=== PATIENT | female | born 1960 | race Caucasian/White ===

== ENCOUNTER 2024-12-26 05:59 | Observation (INO) | payer BC ==
[2024-12-24 14:09] LABS: BASOPHILS % 0.5 % (0.0-1.0); EOSINOPHILS % 3.0 % (0.0-6.0); LYMPHOCYTES % 24.6 % (18.0-39.1); MONOCYTES % 4.7 % (4.4-11.3); NEUTROPHILS % 66.9 % (38.7-80.0); RED CELL DISTRIBUTION WIDTH 12.2 % (11.7-14.4)
[2024-12-24 14:23] LABS: INR 0.93
[2024-12-24 14:28] LABS: EST GLOMERULAR FILTRATION RATE 86.0 ML/MIN (>=60)
[~2024-12-26] VITALS: Ht 157.5 cm; Wt 73.2 kg
[~2024-12-26 05:59] MED LIST: ALTOPREV40 MG PO; DIOVAN320 MG PO; DIOVAN80 MG PO; GLUCOPHAGE500 MG PO; MELOXICAM7.5 MG PO; METOPROLOL SUCC50 MG PO; TENORMIN100 MG PO; TIMOPTIC 0.5%1 EACH OU; TRESIBA FL100 UNIT/1 SQ; VITAMIN D3125 MCG PO
[2024-12-26] MEDS ORDERED: MIDAZOLAM HCL 2 MG/2 ML VIAL ONE (07:09)
[2024-12-26] MEDS ORDERED: PROPOFOL IV EMULSION 10 MG/ML 20 ML VIAL ONE (07:09)
[2024-12-26] MEDS ORDERED: FENTANYL CITRATE/PF 100MCG/2 ML INJ ONE (07:09)
[2024-12-26] MEDS ORDERED: ROCURONIUM BROMIDE 1 ML IV ONE (07:09)
[2024-12-26] MEDS ORDERED: SEVOFLURANE INHAL SOLN 250 ML PEN BTL ONE (07:09)
[2024-12-26] MEDS ORDERED: LIDOCAINE HCL 2% LOCAL INJ 5 ML SDV VIAL INJ ONE (07:09)
[2024-12-26] MEDS ORDERED: SODIUM CHLORIDE 0.9% 100 ML ONE (07:12)
[2024-12-26] MEDS ORDERED: DEXMEDETOMIDINE HCL 2 ML ONE (07:12)
[2024-12-26] MEDS: CEFAZOLIN SODIUM 2 GM ONE (07:40)
[2024-12-26] MEDS: LACTATED RINGER'S 1,000 ML ONE (07:40)
[2024-12-26] MEDS ORDERED: ACETAMINOPHEN 1000 MG/100 ML 100 ML IV ONE (07:47)
[2024-12-26] MEDS ORDERED: FAMOTIDINE 20 MG/2 ML VIAL IV ONE (07:47)
[2024-12-26] MEDS ORDERED: DEXAMETHASONE SOD PHOS INJ 4 MG/ML SDV ONE (08:20)
[2024-12-26] MEDS ORDERED: ONDANSETRON HCL INJ 2MG/ML 2ML 2 MG/ML VIAL ONE (08:20)
[2024-12-26] MEDS ORDERED: KETAMINE HCL INJ 50 MG/ML 10 ML VIAL ONE (08:24)
[2024-12-26] MEDS ORDERED: EPHEDRINE SULFATE INJ 50 MG/ML VIAL ONE (09:04)
[2024-12-26] MEDS ORDERED: SUGAMMADEX SODIUM 200 MG/2 ML VIAL IV ONE (09:05)
[2024-12-26] MEDS ORDERED: HYDROCODON-ACE1 EA12 PO (09:29)
[2024-12-26] MEDS ORDERED: ACETAMINOPHEN 325 MG TAB PO PRN (09:30)
[2024-12-26] MEDS ORDERED: CARISOPRODOL 350 MG TAB PO PRN (09:30)
[2024-12-26] MEDS ORDERED: Morphine 10mg syringe 10 MG/ML INJ IV PRN (09:30)
[2024-12-26] MEDS ORDERED: MELOXICAM 7.5 MG TAB PO PRN (09:30)
[2024-12-26] MEDS ORDERED: MAGNESIUM/ALUMINUM/SIMETHICONE 30 ML UDC PO PRN (09:30)
[2024-12-26] MEDS ORDERED: PROMETHAZINE HCL (IM) 25 MG/ML VIAL IM PRN (09:30)
[2024-12-26] MEDS ORDERED: HYDROMORPHONE 2MG/ML IV PRN (09:30)
[2024-12-26] MEDS ORDERED: DEXTROSE 50% SYRINGE 50 ML IV PRN (09:30)
[2024-12-26] MEDS: HYDRALAZINE HCL 20 MG/ML VIAL ONE (10:25)
[2024-12-26] MEDS ORDERED: OXYCODONE/ACETAMINOPHEN 5-325 1 EACH TABLET PO PRN (10:45)
[2024-12-26] MEDS: INSULIN LISPRO 100 UNIT/1 ML 3ML VIAL SQ SCH (11:30)
[2024-12-26] MEDS: LACTATED RINGER'S 1,000 ML IV SCH (11:56)
[2024-12-26] MEDS: ONDANSETRON HCL INJ 2MG/ML 2ML 2 MG/ML VIAL IV PRN (11:56)
[2024-12-26 12:30] VITALS: BP 133/69; PULSE 77; RESP 18; TEMP 98.1; O2SAT 98
[2024-12-26 12:44] VITALS: BP 133/69; PULSE 77; RESP 18; TEMP 98.2; O2SAT 99
[2024-12-26 12:45] VITALS: BP 133/69; PULSE 77; RESP 18; TEMP 98.1; O2SAT 98
[2024-12-26 16:00] VITALS: BP 138/69; PULSE 77; RESP 18; TEMP 97.5; O2SAT 98
[2024-12-26] MEDS: OXYCODONE/ACETAMINOPHEN 5-325 1 EACH TABLET PO PRN (16:11)
[2024-12-26] MEDS: METFORMIN HCL 500 MG TAB PO SCH (17:49)
[2024-12-26 20:00] VITALS: BP 118/67; PULSE 84; RESP 19; TEMP 97.6; O2SAT 98
[2024-12-26 21:00] VITALS: BP 118/67; PULSE 84; RESP 19; TEMP 97.6; O2SAT 98
[2024-12-26] MEDS ORDERED: ZOLPIDEM TARTRATE 5 MG TAB PO PRN (21:00)
[2024-12-27] MEDS: ATENOLOL 50 MG TAB PO SCH (09:00)
[2024-12-27] MEDS: INSULIN DEGLUDEC 20 UNIT SQ SCH (09:00)
[2024-12-27] MEDS: NON-FORMULARY MEDICATION (Lovastatin (Altoprev) 20 MG) PO SCH (09:00)
[2024-12-27] MEDS: VALSARTAN 160 MG TAB PO SCH (10:09)
[2024-12-27 10:10] VITALS: PULSE 81
[2024-12-27] MEDS: METOPROLOL SUCCINATE 50 MG TAB XL PO SCH (10:10)
[2024-12-27 10:12] VITALS: BP 145/62
[2024-12-27] MEDS: TIMOLOL MALEATE 0.5% OPTH DRP 5 ML BTL OU SCH (10:12)
== END 2024-12-27 11:04 | disposition home or self-care (01) ==
LOC: OR 05:59 → PACU V 09:28 → MED/SURG 11:09
PROVIDERS: ADMIT Neurological Surgery; ATTEND Neurological Surgery
DX: M51.16 Intervertebral disc disorders with radiculopathy, lumbar region (principal); E11.9 Type 2 diabetes mellitus without complications; Z79.84 Long term (current) use of oral hypoglycemic drugs; I10 Essential (primary) hypertension; E78.5 Hyperlipidemia, unspecified; E66.9 Obesity, unspecified; Z68.29 Body mass index [BMI] 29.0-29.9, adult; Z01.810 Encounter for preprocedural cardiovascular examination; Z01.812 Encounter for preprocedural laboratory examination; Z01.818 Encounter for other preprocedural examination
CPT/HCPCS: 36415 ×3; 63030; 71046; 72020; 80048; 82948 ×2; 85025; 85610; 85730; 86850; 86900; 88304; 88311; 93005; G0378 ×2; J0131; J0360; J0690 ×2; J1100; J1308; J2003; J2250; J2405; J2704; J3010; J7050; J7121